=== PATIENT | male | born 1995 | race African-American/Black ===

== ENCOUNTER 2018-04-27 02:04 | Emergency (ER) | payer SELFPAY ==
[~2018-04-27] VITALS: Ht 172.7 cm; Wt 76.2 kg
[2018-04-27] MEDS ORDERED: NKM (02:16)
[2018-04-27 02:30] VITALS: BP 118/63
[2018-04-27] MEDS ORDERED: TESSALON PERLE100 MG ORAL (02:37)
[2018-04-27] MEDS ORDERED: IBUPROFEN600 MG ORAL (02:37)
--- NOTE | 2018-04-27 02:37 | Emergency Room Report ---
History of Present Illness General Chief Complaint: Back Pain-No Injury Source: Patient Present Illness HPI Is a 22-year-old male who states that he's been coughing for the last 2 weeks. Also with back pain. No trauma. No fever chills. Pain is 9 out of 10. Worse with walking. No unconscious or bowel or urine. No numbness. Denies any other complaint. Has not take anything for it. Allergies: Coded Allergies: No Known Allergies (Unverified , 04/27/18) Patient History Past Medical History: see triage record, old chart reviewed Past Surgical History: none Pertinent Family History: none Social History: Reports: smoking Immunizations: other Reviewed Nursing Documentation: PMH: Agreed; PSxH: Agreed Nursing Documentation-PMH Past Medical History: No Stated History Review of Systems Eye: Denies: eye pain, blurred vision ENT: Denies: ear pain, nose congestion, throat swelling Respiratory: Reports: cough; Denies: shortness of breath Cardiovascular: Denies: chest pain, palpitations Gastrointestinal: Denies: abdominal pain, diarrhea, nausea, vomiting Musculoskeletal: Reports: back pain; Denies: joint pain Skin: Denies: rash Neurological: Denies: headache, numbness Endocrine: Denies: increased thirst, increased urine Hematologic/Lymphatic: Denies: easy bruising All Other Systems: negative except mentioned in HPI Physical Exam Vital Signs Date Time Temp Pulse Resp B/P (MAP) Pulse Ox O2 Delivery O2 Flow Rate FiO2 04/27/18 02:10 98.5 78 16 113/63 96 Room Air 98.4 vitals normal Sp02 EP Interpretation: reviewed, normal General Appearance: well appearing, no apparent distress, alert Head: normocephalic, atraumatic Eyes: bilateral eye PERRL, bilateral eye EOMI ENT: hearing grossly normal, normal pharynx Neck: full range of motion, supple, no meningismus Respiratory: chest non-tender, lungs clear, normal breath sounds Cardiovascular #1: regular rate, rhythm, no murmur Gastrointestinal: normal bowel sounds, non tender, no mass, no organomegaly, no bruit, non-distended Musculoskeletal: back normal, gait/station normal, normal range of motion Psychiatric: mood/affect normal Skin: warm/dry Medical Decision Making Diagnostic Impression: Primary Impression: Back pain Qualified Codes: M54.5 - Low back pain Additional Impression: Cough ER Course Patient complained of back pain. No evidence of cauda equina syndrome, spinal after abscess or neoplastic process. He is resting comfortably. He also said that he has a cough for 2 weeks but is not coughing here. Lungs are clear. I see no evidence of pneumonia, ACS, PE or any other infectious cause. We'll discharge home. Last Vital Signs Date Time Temp Pulse Resp B/P (MAP) Pulse Ox O2 Delivery O2 Flow Rate FiO2 04/27/18 02:10 98.5 78 16 113/63 96 Room Air 98.4 Status: unchanged Disposition: HOME, SELF-CARE Condition: Stable Scripts Benzonatate* (TESSALON PERLE*) 100 Mg Capsule 100 MG ORAL THREE TIMES A DAY, #21 PERLE Prov: GEOVANNY HUBBARD M.D. 04/27/18 Ibuprofen* (MOTRIN*) 600 Mg Tablet 600 MG ORAL THREE TIMES A DAY, #30 TAB 0 Refills Prov: GEOVANNY HUBBARD M.D. 04/27/18 Patient Instructions: Back Pain, Adult Additional Instructions: Follow-up withyour doctor in 7 days. Return if symptom worsen. GEOVANNY HUBBARD M.D. Apr 27, 2018 02:37
[2018-04-27 02:45] VITALS: BP 118/63
== END 2018-04-27 02:45 | disposition home or self-care (01) ==
LOC: EMR 02:40
DX: M54.9 Dorsalgia, unspecified (principal); R05 Cough
CPT/HCPCS: 99283